=== PATIENT | female | born 1970 | race American Indian/Alaskan Native ===

== ENCOUNTER 2017-06-06 14:18 | Outpatient (CLI) | payer BC ==
--- NOTE | 2017-06-06 16:23 | Mammography Report ---
BILATERAL DIGITAL SCREENING MAMMOGRAM with CAD: 06/06/17 14:18:00 CLINICAL: Routine screening. COMPARISON:06/05/16 FINDINGS: There are bilateral scattered fibroglandular densities. No mass, architectural distortion or suspicious calcifications. IMPRESSION: No mammographic evidence of malignancy. BI-RADS CATEGORY: 1 - - Negative RECOMMENDATION: Routine mammographic screening in one year. COMMENT: Patient follow-up letters are generated by our [employer] application.
== END 2017-06-06 14:19 | disposition home or self-care (01) ==
LOC: SPVWC 14:18
PROVIDERS: ATTEND Obstetrics & Gynecology
DX: Z12.31 Encounter for screening mammogram for malignant neoplasm of breast (principal)
CPT/HCPCS: 77067; G0202

== ENCOUNTER 2018-06-07 14:14 | Outpatient (CLI) | payer BC ==
--- NOTE | 2018-06-07 14:42 | Mammography Report ---
Bilateral mammogram: Compared to 06/06/17 and 06/05/16. CAD study utilized. Findings: Predominant study post tissue bilaterally. Benign densities left breast without interval change. Benign axillary nodes. No suspicious calcifications. Impression: Benign findings. Annual followup recommended. BI-RADS CATEGORY: 2 = Benign ACR BI-RADS MAMMOGRAPHIC CODES: 0 = Needs additional imaging evaluation; 1 = Negative; 2 = Benign; 3 = Probably benign; 4 = Suspicious; 5 = Malignant; 6 = Known biopsy-proven malignancy COMMENT: 1. Dense breast tissue, i.e., adenosis, fibrocystic changes, etc., may obscure an underlying neoplasm. 2. Approximately 10% of cancers are not detected with mammography. 3. A negative mammography report should not delay biopsy if a clinically suspicious mass is present. COMMENT: Patient follow-up letters are generated in [employer].
== END 2018-06-07 14:15 | disposition home or self-care (01) ==
LOC: SPVWC 14:14 → EDSTATUS 06-10 15:30
PROVIDERS: ATTEND Obstetrics & Gynecology
DX: Z12.31 Encounter for screening mammogram for malignant neoplasm of breast (principal)
CPT/HCPCS: 77067

== ENCOUNTER 2019-06-20 14:43 | Outpatient (CLI) | payer BC ==
--- NOTE | 2019-06-23 16:12 | Mammography Report ---
DIGITAL SCREENING MAMMOGRAM WITH CAD, 06/20/2019 INDICATION: Routine screening mammography. TECHNIQUE: Digital bilateral 2D mammography was obtained in the craniocaudal and mediolateral obliq ue projections. This examination was interpreted with the benefit of Computer-Aided Detection analysi s. COMPARISON: 06/07/2018 FINDINGS: Breast Density: The breasts are almost entirely fatty. There is no evidence of dominant mass, suspicious calcifications or architectural distortion in eithe r breast. IMPRESSION: No mammographic evidence of malignancy. Follow up recommendation: Routine yearly BI-RADS Category 1: Negative. A "normal" or negative report should not discourage follow up or biopsy of a clinically significant f inding. A written summary of these findings will be mailed to the patient. The patient will be entered into a mammography reporting system which will generate a reminder letter for the patient's next appointmen t at the appropriate interval. The [employer] recommends yearly mammograms starting at age 40 and continuing as l antony as a woman is in good health. Breast MRI is recommended for women with an approximate 20-25% or greater lifetime risk of breast cancer, including women with a strong family history of breast or ova kirk cancer or who have been treated for Hodgkin's disease. Signer Name: Eldon Jean MD Signed: 06/23/2019 4:07 PM Workstation Name: [id number]
== END 2019-06-20 14:44 | disposition home or self-care (01) ==
LOC: SPVWC 14:43
PROVIDERS: ATTEND Obstetrics & Gynecology
DX: Z12.31 Encounter for screening mammogram for malignant neoplasm of breast (principal)
CPT/HCPCS: 77067

== ENCOUNTER 2020-07-14 14:13 | Outpatient (CLI) | payer BC ==
--- NOTE | 2020-07-14 16:31 | Mammography Report ---
DIGITAL SCREENING MAMMOGRAM WITH CAD, 07/14/2020 CLINICAL INFORMATION / INDICATION: Routine screening mammography. TECHNIQUE: Digital bilateral 2D mammography was obtained in the craniocaudal and mediolateral obliqu e projections. This examination was interpreted with the benefit of Computer-Aided Detection analysis . COMPARISON: 06/30/2019, 06/07/2018 FINDINGS: Breast Density: There are scattered areas of fibroglandular density. No dominant mass, suspicious calcifications, or architectural distortion in either breast. IMPRESSION: No mammographic evidence of malignancy. Follow up recommendation: Routine yearly BI-RADS Category 1: Negative. A "normal" or negative report should not discourage follow up or biopsy of a clinically significant f inding. A written summary of these findings will be mailed to the patient. The patient will be entered into a mammography reporting system which will generate a reminder letter for the patient's next appointmen t at the appropriate interval. The [employer] recommends yearly mammograms starting at age 40 and continuing as l antony as a woman is in good health. Breast MRI is recommended for women with an approximate 20-25% or greater lifetime risk of breast cancer, including women with a strong family history of breast or ova kirk cancer or who have been treated for Hodgkin's disease. Signer Name: Casimiro Husain MD Signed: 07/14/2020 4:26 PM Workstation Name: [id number] [id number]
== END 2020-07-14 14:14 | disposition home or self-care (01) ==
LOC: SPVWC 14:13
PROVIDERS: ATTEND Obstetrics & Gynecology
DX: Z12.31 Encounter for screening mammogram for malignant neoplasm of breast (principal)
CPT/HCPCS: 77067